=== PATIENT | female | born 1985 | race Caucasian/White ===

== ENCOUNTER 2021-01-27 04:51 | Day surgery (SDC) | payer BC ==
[2021-01-24 12:06] VITALS: BMI 21.1
[~2021-01-27 04:51] MED LIST: FERRIC SUBSULFATE 500 ML BOTTLE TP ONE; IODINE/POTASSIUM IODIDE 5%/10% 14 ML BOTTLE NR ONE
[2021-01-27] MEDS ORDERED: MIDAZOLAM HCL 2 MG/2 ML SINGLE DOSE VIAL ONE (07:30)
[2021-01-27] MEDS ORDERED: PROPOFOL 20 ML ONE (07:30)
[2021-01-27] MEDS ORDERED: ACETAMINOPHEN 325 MG TABLET (FP) PO PRN (08:00)
[2021-01-27] MEDS ORDERED: IBUPROFEN 400 MG TABLET (FP) PO PRN (08:00)
[2021-01-27] MEDS ORDERED: IODINE/POTASSIUM IODIDE 5%/10% 14 ML BOTTLE NR ONE (08:21)
[2021-01-27] MEDS ORDERED: FERRIC SUBSULFATE 500 ML BOTTLE TP ONE (08:22)
[2021-01-27] MEDS ORDERED: DEXAMETHASONE SOD PHOSPHATE 4 MG/1 ML VIAL ONE (08:50)
[2021-01-27] MEDS ORDERED: KETOROLAC TROMETHAMINE 30 MG/1 ML VIAL ONE (08:50)
[2021-01-27] MEDS ORDERED: ONDANSETRON 4 MG/2 ML VIAL IVPUSH PRN (09:12)
[2021-01-27] MEDS ORDERED: oxyCODONE HCL 5 MG TABLET PO PRN ×2 (09:12)
[2021-01-27] MEDS ORDERED: LACTATED RINGERS SOLUTION 1,000 ML IV SCH (09:15)
[2021-01-27 10:17] VITALS: BP 122/68; PULSE 65; TEMP 98.4
== END 2021-01-27 10:12 | disposition home or self-care (01) ==
LOC: JASU-SURG 04:51
PROVIDERS: ATTEND Obstetrics & Gynecology
PROC: 0UBC7ZX Excision of Cervix, Via Natural or Artificial Opening, Diagnostic (ICD-10-PCS; principal; 2021-01-27 07:30)
DX: N87.1 Moderate cervical dysplasia (principal); N72 Inflammatory disease of cervix uteri; R87.810 Cervical high risk human papillomavirus (HPV) DNA test positive
CPT/HCPCS: 81025; 88307-TC; 94760